=== PATIENT | male | born 1970 | race Caucasian/White ===

== ENCOUNTER 2018-04-11 18:17 | Emergency (ER) | payer OTHER ==
[~2018-04-11] VITALS: Ht 165.1 cm; Wt 88.5 kg
[2018-04-11 18:28] VITALS: BP 126/74
--- NOTE | 2018-04-11 18:34 | NUR ---
PT AMBULATES TO BED 12
--- NOTE | 2018-04-11 18:46 | NUR ---
BIB SELF C/O UPPER LEFT QUAD AB PAIN X 3DAYS, LBM TODAY, 7/10 PAIN SCALE, URINE BURNING SENSATION. DENIES N/V/D; SKIN IS PINK/WARM/DRY; AAOX4 WITH EVEN AND STEADY GAIT; LUNGS CLEAR BL; HR EVEN AND REGULAR; PT DENIES ANY FEVER, CP, SOB, OR COUGH AT THIS TIME; PATIENT STATES PAIN OF 7/10 AT THIS TIME; VSS; PATIENT POSITIONED FOR COMFORT; HOB ELEVATED; BEDRAILS UP X2; BED DOWN. ER MD MADE AWARE OF PT STATUS.
--- NOTE | 2018-04-11 19:15 | NUR ---
RECEIVED REPORT FROM AM NURSE. PT RESTING IN BED, RR EVEN AND UNLABORED.
[2018-04-11] MEDS ORDERED: MORPHINE SULFATE 4 MG/ML SYR IVP ONE (19:55)
[2018-04-11] MEDS ORDERED: ONDANSETRON 4 MG/2 ML VIAL IVP ONE (19:55)
[2018-04-11] MEDS ORDERED: NACL 0.9% 1,000 ML IV ONE (19:55)
[2018-04-11 20:40] LABS: APPEARANCE,URINE CLEAR (CLEAR); COLOR,URINE YELLOW (YELLOW)
[2018-04-11 20:41] LABS: BILIRUBIN,URINE NEGATIVE (NEGATIVE); BLOOD, URINE NEGATIVE (NEGATIVE); LEUKOCYTE ESTERASE ,URINE NEGATIVE (NEGATIVE); NITRITE, URINE NEGATIVE (NEGATIVE); UGLUCOSE NEGATIVE (NEGATIVE)
[2018-04-11 20:54] LABS: BASOPHILS % (AUTO) 0.3 % (0.0-2.0); EOSINOPHILS # (AUTO) 0.2 K/uL (0-0.4); EOSINOPHILS % (AUTO) 3.5 % (0.0-4.0); HEMATOCRIT 40.3 % (36-52); HEMOGLOBIN 13.9 g/dL (12.0-18.0); LYMPHOCYTES % (AUTO) 32.5 % (20.5-51.1); MEAN CORPUSCULAR HEMOGLOBIN 31 pg (27-31); MEAN CORPUSCULAR HGB CONC 34 g/dL (33-37); MEAN CORPUSCULAR VOLUME 91.2 fL (80-94); MONOCYTES # (AUTO) 0.4 K/uL (0.8-1.0); MONOCYTES % (AUTO) 5.8 % (1.7-9.3); NEUTROPHILS # (AUTO) 3.6 K/uL (1.8-7.7); NEUTROPHILS % (AUTO) 57.9 % (42.2-75.2); PLATELET COUNT (AUTO) 190 K/uL (140-450); RED BLOOD CELL COUNT(AUTO) 4.42 MIL/uL (4.20-6.10); RED CELL DISTRIBUTION WIDTH 13.2 % (11.6-13.7); WHITE BLOOD COUNT (AUTO) 6.3 K/uL (4.8-10.8)
[2018-04-11 20:56] LABS: ANION GAP 7.9 (8-16); CARBON DIOXIDE 30.8 mmol/L (21-32); POTASSIUM 3.7 mmol/L (3.5-5.1)
[2018-04-11 21:01] LABS: TOTAL BILIRUBIN 0.7 mg/dL (0.0-1.0)
[2018-04-11 21:02] LABS: ALBUMIN 4.3 g/dL (3.4-5.0)
[2018-04-11 21:45] VITALS: BP 122/69
--- NOTE | 2018-04-11 21:45 | NUR ---
Patient discharged with v/s stable. Written and verbal after care instructions given and explained. Patient alert, oriented and verbalized understanding of instructions. Ambulatory with steady gait. All questions addressed prior to discharge. ID band removed. Patient advised to follow up with PMD. Rx of ULTRAM given. Patient educated on indication of medication including possible reaction and side effects. Opportunity to ask questions provided and answered.
== END 2018-04-11 21:45 | disposition home or self-care (01) ==
LOC: MED 18:17
DX: R10.30 Lower abdominal pain, unspecified (principal); I10 Essential (primary) hypertension
CPT/HCPCS: 36415; 74176; 80053; 81003; 83690; 85025; 96374; 96375; 99285; J2270; J2405; J7030

== ENCOUNTER 2020-05-08 11:33 | Emergency (ER) | payer OTHER ==
[~2020-05-08] VITALS: Ht 162.6 cm; Wt 93.4 kg
[2020-05-08 11:48] VITALS: BP 151/93
--- NOTE | 2020-05-08 11:51 | NUR ---
PATIENT AMBULATED TO BED 7.
--- NOTE | 2020-05-08 11:56 | NUR ---
Pt c/o bug bite to back of head on 05/01. Pt states bite "popped" 3 days ago and has had pain since. medhx: HTN
[2020-05-08 12:27] VITALS: BP 151/93
--- NOTE | 2020-05-08 12:28 | NUR ---
Patient discharged with v/s stable. Written and verbal after care instructions given and explained. Patient verbalized understanding. Ambulatory with steady gait. All questions addressed prior to discharge. Advised to follow up with PMD.
== END 2020-05-08 12:28 | disposition home or self-care (01) ==
LOC: MED 11:33
DX: G44.209 Tension-type headache, unspecified, not intractable (principal); I10 Essential (primary) hypertension; B02.9 Zoster without complications; Z98.890 Other specified postprocedural states
CPT/HCPCS: 99281